=== PATIENT | female | born 1945 | race Caucasian/White ===

== ENCOUNTER 2021-04-18 20:09 | Emergency (ER) | payer MEDICARE, OTHER ==
[2021-04-18 20:54] LABS: BASOPHIL 0.5 % (0-2); EOSINOPHIL 2.4 % (0-7); LYMPHOCYTE 26.9 % (15-48); MCH 28.6 pg (25.0-31.0); MCHC 33.3 g/dL (32.0-36.0); MCV 85.7 fL (78.0-100.0); MONOCYTE 7.4 % (0-12); MPV 11.6 fL (6.0-9.5); NEUTROPHIL 62.4 % (41-80); NRBC 0; PLT 189 K/uL (150-400); RDW 13.5 % (11.5-14.0); WBC 8.1 K/uL (4.0-10.5)
[2021-04-18 21:10] LABS: BUN/CREAT RATIO (CALC) 20.9 RATIO; CREATININE 2.15 mg/dL (0.51-0.95); POTASSIUM 4.9 mmol/L (3.5-5.1)
== END 2021-04-18 23:17 | disposition home or self-care (01) ==
LOC: FER 20:09
PROVIDERS: Nurse Practitioner Family
DX: S00.03XA Contusion of scalp, initial encounter (principal); M25.551 Pain in right hip; I10 Essential (primary) hypertension; I12.9 Hypertensive chronic kidney disease with stage 1 through stage 4 chronic kidney disease, or unspecified chronic kidney disease; N18.9 Chronic kidney disease, unspecified; F03.90 Unspecified dementia, unspecified severity, without behavioral disturbance, psychotic disturbance, mood disturbance, and anxiety; Z86.73 Personal history of transient ischemic attack (TIA), and cerebral infarction without residual deficits; Z79.82 Long term (current) use of aspirin; Z79.899 Other long term (current) drug therapy; W18.09XA Striking against other object with subsequent fall, initial encounter; Y92.129 Unspecified place in nursing home as the place of occurrence of the external cause
CPT/HCPCS: 36415; 70450; 72125; 73502; 80048; 85025

== ENCOUNTER 2022-02-16 10:00 | Emergency (ER) | payer MEDICARE, OTHER ==
[2022-02-16 11:10] LABS: BASOPHIL 0.3 % (0-2); EOSINOPHIL 0.1 % (0-7); HCT 42.2 % (37.0-47.0); HGB 13.8 g/dl (12.5-16.0); LYMPHOCYTE 12.7 % (15-48); MCH 29.1 pg (25.0-31.0); MCHC 32.7 g/dL (32.0-36.0); MCV 88.8 fL (78.0-100.0); MONOCYTE 5.8 % (0-12); MPV 11.1 fL (6.0-9.5); NEUTROPHIL 80.8 % (41-80); NRBC 0; PLT 214 K/uL (150-400); RBC 4.75 M/uL (4.20-5.40); RDW 13.5 % (11.5-14.0); WBC 8.6 K/uL (4.0-10.5)
[2022-02-16 11:25] LABS: ALBUMIN 3.4 g/dL (3.4-5.0); BILIRUBIN - TOTAL 0.3 mg/dL (0.2-1.0); BUN/CREAT RATIO (CALC) 15.4 RATIO; CREATININE 2.01 mg/dL (0.51-0.95); GLOBULIN (CALCULATION) 3.3 g/dL; POTASSIUM 5.4 mmol/L (3.5-5.1); TOTAL PROTEIN 6.7 g/dL (6.4-8.2)
[2022-02-16 11:28] LABS: BILIRUBIN NEGATIVE (NEGATIVE); BLOOD NEGATIVE Ery/uL (NEGATIVE); CLARITY CLEAR (CLEAR); COLOR YELLOW (YELLOW); GLUCOSE (U) NORMAL (NORMAL); LEUKOCYTES NEGATIVE Leu/uL (NEGATIVE); NITRITE NEGATIVE (NEGATIVE); PROTEIN 2+ mg/dL (NEGATIVE); SPECIFIC GRAVITY 1.025 (1.001-1.030); UROBILINOGEN 0.2 mg/dL (0.2-1.0)
[2022-02-16 11:45] LABS: BACTERIA TRACE
[2022-02-16 12:01] LABS: CORONAVIRUS 2019 SARS-COV-2 NEGATIVE (NEGATIVE); INFLUENZA A NAA NEGATIVE (NEGATIVE)
== END 2022-02-16 12:58 | disposition home or self-care (01) ==
LOC: FER 10:00
PROVIDERS: Internal Medicine
DX: Z04.3 Encounter for examination and observation following other accident (principal); E87.5 Hyperkalemia; R91.1 Solitary pulmonary nodule; K22.89 Other specified disease of esophagus; I10 Essential (primary) hypertension; E11.9 Type 2 diabetes mellitus without complications; Z20.822 Contact with and (suspected) exposure to COVID-19
CPT/HCPCS: 36415; 70450; 71250; 72125; 80053; 81001; 84145; 85025; U0002

== ENCOUNTER 2022-02-20 12:26 | Emergency (ER) | payer MEDICARE, OTHER ==
[2022-02-20 13:13] LABS: BASOPHIL 0.4 % (0-2); EOSINOPHIL 0.7 % (0-7); HCT 45.8 % (37.0-47.0); HGB 14.4 g/dl (12.5-16.0); LYMPHOCYTE 18.9 % (15-48); MCH 28.2 pg (25.0-31.0); MCHC 31.4 g/dL (32.0-36.0); MCV 89.6 fL (78.0-100.0); MONOCYTE 7.6 % (0-12); MPV 12.2 fL (6.0-9.5); NEUTROPHIL 71.9 % (41-80); NRBC 0; PLT 181 K/uL (150-400); RBC 5.11 M/uL (4.20-5.40); RDW 13.8 % (11.5-14.0); WBC 10.6 K/uL (4.0-10.5)
[2022-02-20 13:33] LABS: ALBUMIN 3.7 g/dL (3.4-5.0); BILIRUBIN - TOTAL 0.4 mg/dL (0.2-1.0); BUN/CREAT RATIO (CALC) 16.3 RATIO; CREATININE 2.03 mg/dL (0.51-0.95); GLOBULIN (CALCULATION) 4.2 g/dL; POTASSIUM 4.5 mmol/L (3.5-5.1); TOTAL PROTEIN 7.9 g/dL (6.4-8.2)
[2022-02-20 15:02] LABS: BILIRUBIN NEGATIVE (NEGATIVE); BLOOD NEGATIVE Ery/uL (NEGATIVE); CLARITY CLEAR (CLEAR); COLOR YELLOW (YELLOW); GLUCOSE (U) TRACE mg/dL (NORMAL); LEUKOCYTES NEGATIVE Leu/uL (NEGATIVE); NITRITE NEGATIVE (NEGATIVE); PROTEIN 2+ mg/dL (NEGATIVE); SPECIFIC GRAVITY 1.015 (1.001-1.030); UROBILINOGEN 0.2 mg/dL (0.2-1.0)
== END 2022-02-20 18:00 | disposition home or self-care (01) ==
LOC: FER 12:26
PROVIDERS: Emergency Medicine
DX: E11.649 Type 2 diabetes mellitus with hypoglycemia without coma (principal); I12.0 Hypertensive chronic kidney disease with stage 5 chronic kidney disease or end stage renal disease; E11.22 Type 2 diabetes mellitus with diabetic chronic kidney disease; N18.6 End stage renal disease; F03.90 Unspecified dementia, unspecified severity, without behavioral disturbance, psychotic disturbance, mood disturbance, and anxiety; Z99.2 Dependence on renal dialysis
CPT/HCPCS: 36415; 70450; 80053; 81001; 84443; 85025